=== PATIENT | male | born 2005 | race Caucasian/White ===

== ENCOUNTER 2024-11-27 17:10 | Emergency (ER) | payer BC, SELFPAY ==
[2024-11-27 17:12] VITALS: PULSE 82; RESP 18; TEMP 36.7; O2SAT 98; BMI 17.4
--- NOTE | 2024-11-27 17:37 | EX.ED.DYSGE1 ---
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 The dog belonged to an flight nurse with whom he spoke, and the dog was not up-to-date on its rabies injections but was asymptomatic. Despite this the patient went to the local emergency department and received rabies immunoglobulin injections and has received the first 3 immunizations. He states that the wound is healing and doing well he has no pain or systemic symptoms and he is simply here to try to get his fourth rabies immunization. PFSH PFS Medical History no medical history no medical history Allergy/AdvReac Type Severity Reaction Status Date / Time No Known Allergies Allergy Verified 11/27/24 17:12 Social History Smoking Status: Never smoker ROS ROS ED Constitutional Constitutional ED: Denies chills or fever(s) Eyes Eyes: Denies blurry vision, change in vision or diplopia ENT ENT ED: Denies sore throat Cardiovascular Cardiovascular: Denies chest pain Respiratory/Chest Respiratory/Chest: Denies dyspnea Gastrointestinal Gastrointestinal: Denies abdominal pain, nausea or vomiting Musculoskeletal Musculoskeletal: Denies arthralgias, extremity pain or neck pain Integumentary Reports wounds; Denies Abrasions or rash Neurologic Neurologic: Denies headache(s), paresthesias or weakness EXAM Physical Exam Const Vital Signs: 11/27/24 17:12 Temperature 98.1 F Temperature Source Temporal Pulse Rate 82 Respiratory Rate 18 Pulse Ox 98 Oxygen Delivery Method Room Air Positive well nourished and well developed Constitutional Narrative: Well-appearing General Appearance ED: well developed and NAD Neck full ROM and supple Back/Spine normal ROM and normal to inspection Extremity Extremity Narrative: All compartment soft and nondistended full range of motion no signs of infection around the wounds left lower extremity. Neuro oriented x3, no focal motor deficits and no sensory deficits noted Sensorium / Orientation: alert Psych mental status grossly normal and thought process normal Skin Skin Narrative: Healing scabbed nontender wound lateral aspect of the distal left lower leg just proximal to the lateral malleolus. Rashes: no rashes MDM MDM MDM Narrative Medical decision making narrative: As I discussed with the patient, happy to give him the fourth immunization in the series and then he will be complete. However according to CDC recommendations, I do not think he needed the immunizations in the first place since he was able to contact the flight nurse and the flight nurse was able to watch the dog in a quarantined setting who at the time was asymptomatic. Patient understands and is comfortable with the overall plan given appropriate discharge instructions regarding immunization. Discharge Plan Triage Chief Complaint: Bite ED Provider: Arcadio Vogt Dx/Rx/DC Orders Clinical Impression: Need for immunization against rabies Instructions: Rabies Vaccine Referrals: [place],[facility] [Group of Physicians] - As Needed Print Language: Divehi Disposition Disposition: Home, Self Care
== END 2024-11-27 18:03 | disposition home or self-care (01) ==
LOC: ED 17:51
PROVIDERS: Emergency Provider Emergency Medicine; Visit Provider Emergency Medicine
DX: S81.852D Open bite, left lower leg, subsequent encounter (principal); W54.0XXD Bitten by dog, subsequent encounter; Z23 Encounter for immunization
CPT/HCPCS: 90675; 99282